=== PATIENT | female | born 1995 | race Caucasian/White ===

== ENCOUNTER 2017-08-10 18:58 | Emergency (ER) | payer MEDICAID, OTHER ==
[2017-08-10 19:26] VITALS: BP 127/76; PULSE 90; RESP 16; TEMP 98.8; O2SAT 100
--- NOTE | 2017-08-10 20:19 | ED PDOC ---
HPI: Female Pain Time Seen by Provider: 08/10/17 20:01 Chief Complaint (Nursing): Female Genitourinary Chief Complaint (Provider): vaginal pain History Per: Patient History/Exam Limitations: no limitations Onset/Duration Of Symptoms: Days (2) Current Symptoms Are (Timing): Still Present Quality Of Discomfort: "Pain" Additional History Per: Patient Additional Complaint(s): 22 y/o female presents for evaluation of left-sided vaginal pain/swelling x 2 days. Patient states swelling has worsened since yesterday. Denies fever, nausea/vomiting, abdominal/pelvic pain, vaginal bleeding/discharge, drainage from site. Past Medical History Reviewed: Historical Data, Nursing Documentation, Vital Signs Vital Signs: Last Vital Signs Temp 98.8 F 08/10/17 19:23 Pulse 90 08/10/17 19:23 Resp 16 08/10/17 19:23 BP 127/76 08/10/17 19:23 Pulse Ox 100 08/10/17 19:23 - Medical History PMH: No Chronic Diseases - Surgical History Surgical History: No Surg Hx - Family History Family History: States: No Known Family Hx - Home Medications Home Medications: Ambulatory Orders Medication Instructions Recorded Ciprofloxacin HCl [Cipro] 500 mg PO BID #13 tab 08/10/17 Ibuprofen [Motrin Tab] 1 tab PO Q6 PRN #20 tab 08/10/17 - Allergies Allergies/Adverse Reactions: Allergies Allergy/AdvReac Type Severity Reaction Status Date / Time No Known Allergies Allergy Verified 08/10/17 19:23 Review of Systems ROS Statement: Except As Marked, All Systems Reviewed And Found Negative Genitourinary Female: Positive for: Other (vaginal pain) Physical Exam - Reviewed Nursing Documentation Reviewed: Yes Vital Signs Reviewed: Yes - Physical Exam Appears: Positive for: Well, Non-toxic, No Acute Distress Cardiovascular/Chest: Positive for: Regular Rate, Rhythm Respiratory: Positive for: Normal Breath Sounds Gastrointestinal/Abdominal: Positive for: Normal Exam, Bowel Sounds, Soft Pelvic Exam: Negative for: External Exam Normal (left labia majora erythema/ swelling. 4:00 position left labia minora with erythema, swelling, tender to palpate; no active drainage) Extremity: Positive for: Normal ROM Neurologic/Psych: Positive for: Alert, Oriented - ECG O2 Sat by Pulse Oximetry: 100 - Progress ED Course And Treament: Patient evaluated by Dr. Leslie, Book Agent on-call; arrangements made for follow up at clinic. Recommends pain control, sitz baths, and trial Cipro. Return precautions given. Disposition - Clinical Impression Clinical Impression: Swelling of vulva - Patient ED Disposition Is Patient to be Admitted: No Counseled Patient/Family Regarding: Diagnosis, Need For Followup, Rx Given - Disposition [facility] Disposition: Routine/Home Disposition Time: 21:51 Condition: STABLE Prescriptions: Ciprofloxacin HCl [Cipro] 500 mg PO BID #13 tab Ibuprofen [Motrin Tab] 1 tab PO Q6 PRN #20 tab PRN Reason: Pain, Moderate (4-7) Instructions: Bartholin's Gland Cyst, Skin Abscess
--- NOTE | 2017-08-10 21:35 | CP.PCM.CON ---
<Juan Mckoy - Last Filed: 08/10/17 21:25> History of Present Illness - History of Present Illness History of Present Illness: SOFTWARE SYSTEMS ANALYST Consult Pt is a 22 y/o female presenting to ED with vaginal pain and swelling x 1 day. States she has been having vaginal pain when she sits and noticed a mass associated with foul odor. Denies vaginal bleeding, discharge, pruritus, fever, chills, dysuria. PMHX: denies PSurgHx: denies GYNHx: no hx of STD, sexually active with one partner, uses condoms OBHx: 1 prior Meds: denies NKDA Denies smoking, alcohol, drug use VSS, afebrile Exam: 2-3 cm vaginal swelling (left) in the 3:00 position, mild tenderness, no fluctuance or drainage, skin intact Assessment & Plan: Diagnosis: Vaginal Swelling vs Abscess. Questionable Bartholins cyst. No indication for incision, pt advised to f/u with SOFTWARE SYSTEMS ANALYST in outpatient setting for further evaluation and management. OTC nsaids and sitz baths recommended for pain control. ER precautions given. Pt verbalized understanding. Discussed with OB Attending TAI ForbesY1 Review of Systems - Constitutional Constitutional: absent: Chills, Fever - Cardiovascular Cardiovascular: absent: Chest Pain - Respiratory Respiratory: absent: Cough - Gastrointestinal Gastrointestinal: absent: Abdominal Pain - Genitourinary Genitourinary: absent: Dysuria, Hematuria, Urinary Frequency - Reproductive: Female Reproductive:Female: Vaginal Odor. absent: Genital Pruritis, Pelvic Pain, Vaginal Discharge, Vaginal Pruritis Past Patient History - Past Social History Smoking Status: Never Smoked - PSYCHIATRIC Hx Substance Use: No - SURGICAL HISTORY Hx Surgeries: No Meds Home Medications: Home Medication List Medication Instructions Recorded Confirmed Type Ciprofloxacin HCl [Cipro] 500 mg PO BID #13 tab 08/10/17 Rx Ibuprofen [Motrin Tab] 1 tab PO Q6 PRN #20 tab 08/10/17 Rx Allergies/Adverse Reactions: Allergies Allergy/AdvReac Type Severity Reaction Status Date / Time No Known Allergies Allergy Verified 08/10/17 19:23 Physical Exam - Constitutional Appears: Well, Non-toxic, No Acute Distress - ENT Exam ENT Exam: Mucous Membranes Moist - Respiratory Exam Respiratory Exam: Clear to Auscultation Bilateral. absent: Accessory Muscle Use - Cardiovascular Exam Cardiovascular Exam: REGULAR RHYTHM, +S1, +S2. absent: Systolic Murmur - GI/Abdominal Exam GI & Abdominal Exam: Normal Bowel Sounds, Soft. absent: Tenderness - Exam External exam: Swelling (Vaginal swelling, Left side, 2-3cm ). absent: Ecchymosis, Erythema, Lacerations - Psychiatric Exam Psychiatric exam: Normal Mood Results - Vital Signs Recent Vital Signs: Last Vital Signs Temp 98.8 F 08/10/17 19:23 Pulse 90 08/10/17 19:23 Resp 16 08/10/17 19:23 BP 127/76 08/10/17 19:23 Pulse Ox 100 08/10/17 20:27 <Augustine Leslie - Last Filed: 08/11/17 09:09> Results - Vital Signs Recent Vital Signs: Last Vital Signs Temp 98.8 F 08/10/17 19:23 Pulse 90 08/10/17 19:23 Resp 16 08/10/17 19:23 BP 127/76 08/10/17 19:23 Pulse Ox 100 08/10/17 21:58 Assessment & Plan - Assessment and Plan (Free Text) Assessment: Vaginal cyst - abscess unlikely Plan: Follow up SOFTWARE SYSTEMS ANALYST in 1-2w; local care. If increasing size, pain fever/chills come back to ER...Agree with note PGY1 NELA
== END 2017-08-10 22:20 | disposition home or self-care (01) ==
LOC: H.ER 18:58
DX: N90.9 Noninflammatory disorder of vulva and perineum, unspecified (principal)

== ENCOUNTER 2017-08-11 17:30 | Emergency (ER) | payer MEDICAID ==
[2017-08-11 18:03] VITALS: RESP 18; TEMP 99.4; O2SAT 99
--- NOTE | 2017-08-11 18:28 | ED PDOC ---
HPI: Female Pain Time Seen by Provider: 08/11/17 18:25 Chief Complaint (Nursing): Abnormal Skin Integrity Chief Complaint (Provider): Labial swelling History Per: Patient History/Exam Limitations: no limitations Onset/Duration Of Symptoms: Days (few days) Current Symptoms Are (Timing): Still Present Additional Complaint(s): Pt. with left labia swelling. No dc. No abd pain, dysuria, weakness. No back pain. Seen here yesterday for same and OBGYN saw pt. No drainage but given cipro and motrin. Pt. back as pain and swelling increased. Past Medical History Reviewed: Nursing Documentation, Vital Signs Vital Signs: Last Vital Signs Temp 99.4 F 08/11/17 18:01 Pulse 94 H 08/11/17 18:01 Resp 18 08/11/17 18:01 BP 114/70 08/11/17 18:01 Pulse Ox 99 08/11/17 18:01 - Medical History PMH: No Chronic Diseases - Surgical History Surgical History: No Surg Hx - Family History Family History: States: Unknown Family Hx - Immunization History Hx Tetanus Toxoid Vaccination: No Hx Influenza Vaccination: No Hx Pneumococcal Vaccination: No - Home Medications Home Medications: Ambulatory Orders Medication Instructions Recorded Ciprofloxacin HCl [Cipro] 500 mg PO BID #13 tab 08/10/17 Ibuprofen [Motrin Tab] 1 tab PO Q6 PRN #20 tab 08/10/17 - Allergies Allergies/Adverse Reactions: Allergies Allergy/AdvReac Type Severity Reaction Status Date / Time No Known Allergies Allergy Verified 08/10/17 19:23 Review of Systems ROS Statement: Except As Marked, All Systems Reviewed And Found Negative Constitutional: Negative for: Fever, Weakness Genitourinary Female: Positive for: Other (labial pain) Physical Exam - Reviewed Nursing Documentation Reviewed: Yes Vital Signs Reviewed: Yes - Physical Exam Appears: Positive for: Non-toxic, No Acute Distress Head Exam: Positive for: ATRAUMATIC, NORMAL INSPECTION, NORMOCEPHALIC Skin: Positive for: Normal Color, Warm, DRY Neck: Positive for: Normal, Painless ROM Cardiovascular/Chest: Positive for: Regular Rate, Rhythm Respiratory: Positive for: CNT, Normal Breath Sounds Gastrointestinal/Abdominal: Positive for: Normal Exam, Bowel Sounds, Soft. Negative for: Tenderness Pelvic Exam: Positive for: Other (L labia swelling; L internal labia swelling; tender; no dc) Back: Positive for: Normal Inspection. Negative for: L CVA Tenderness, R CVA Tenderness Extremity: Positive for: Normal ROM. Negative for: Tenderness, Pedal Edema Neurologic/Psych: Positive for: Alert, Oriented - ECG O2 Sat by Pulse Oximetry: 99 Pulse Ox Interpretation: Normal - Progress ED Course And Treament: 1907: Spoke with Dr. Elizabeth. Will see pt. in ER. 2051: Stable. Dr. Elizabeth did I and D. Fu with [facility]. Disposition - Clinical Impression Clinical Impression: Bartholin cyst - Patient ED Disposition Is Patient to be Admitted: No Counseled Patient/Family Regarding: Diagnosis, Need For Followup, Rx Given - Disposition [facility]errals[facility]] - 08/13/17 Disposition: Routine/Home Disposition Time: 20:53 Condition: STABLE Additional Instructions: Return if not better in 3 days. Continue your antibiotics. Instructions: Bartholin's Gland Cyst Forms: [employer] (Hong Konger), [facility] ED School/Work Excuse
[2017-08-11] MEDS ORDERED: Lidocaine 1% Inj (20ml) ONE (19:25)
[2017-08-11] MEDS ORDERED: Povidone Iodine Topical 10% Sol ONE (19:59)
--- NOTE | 2017-08-11 20:16 | CP.PCM.CON ---
History of Present Illness - History of Present Illness History of Present Illness: The patient presents to the emergency room complaining of labial discomfort difficulty sitting difficulty ambulating 24 hours duration. Patient states she was in the ER 1 day prior with similar complaints patient states symptoms got worse requesting medical attention Past Patient History - Past Social History Smoking Status: Never Smoked - PSYCHIATRIC Hx Substance Use: No - SURGICAL HISTORY Hx Surgeries: No Meds Allergies/Adverse Reactions: Allergies Allergy/AdvReac Type Severity Reaction Status Date / Time No Known Allergies Allergy Verified 08/10/17 19:23 Physical Exam - Exam Additional comments: Left Bartholin's abscess approximately 3to 4 cm in size fluctuant and tender to palpation Results - Vital Signs Recent Vital Signs: Last Vital Signs Temp 99.4 F 08/11/17 18:01 Pulse 94 H 08/11/17 18:01 Resp 18 08/11/17 18:01 BP 114/70 08/11/17 18:01 Pulse Ox 99 08/11/17 19:08 Assessment & Plan - Assessment and Plan (Free Text) Assessment: Left Bartholin's abscess informed consent obtained 4 incision and drainage. Procedure note the area was prepped with Betadine, lidocaine was infused, an 11 blade was used to make an incision the contents of the Bartholin's cyst were expressed and a Donovan catheter was inserted. The patient was instructed to follow up with her PMD in 1 week
[2017-08-11 21:23] VITALS: BP 109/59; PULSE 90
== END 2017-08-11 21:23 | disposition home or self-care (01) ==
LOC: H.ER 17:30
DX: N75.1 Abscess of Bartholin's gland (principal)

== ENCOUNTER 2018-03-02 18:59 | Emergency (ER) | payer SELFPAY ==
[2018-03-02 19:26] VITALS: BP 124/77; PULSE 87; RESP 16; TEMP 98.4; O2SAT 100
--- NOTE | 2018-03-02 20:22 | ED PDOC ---
HPI: Skin/Bite Injury Time Seen by Provider: 03/02/18 19:29 Chief Complaint (Nursing): Abnormal Skin Integrity Chief Complaint (Provider): rash History Per: Patient History/Exam Limitations: no limitations Onset/Duration Of Symptoms: Days (x1) Current Symptoms Are (Timing): Still Present Additional Complaint(s): Soni Rosenthal is a 22 year old female, with no significant past medical history , who presents to the emergency department after she noticed a couple of red spots on her neck, flank and upper back onset yesterday. Patient describes them as nonpainful and occasionally itchy. Otherwise, she denies any other medical complaints. PMD: None provided. Past Medical History Reviewed: Historical Data, Nursing Documentation, Vital Signs Vital Signs: Last Vital Signs Temp 98.4 F 03/02/18 19:23 Pulse 87 03/02/18 19:23 Resp 16 03/02/18 19:23 BP 124/77 03/02/18 19:23 Pulse Ox 100 03/02/18 20:41 - Medical History PMH: No Chronic Diseases - Surgical History Surgical History: No Surg Hx - Family History Family History: States: Unknown Family Hx - Immunization History Hx Tetanus Toxoid Vaccination: No Hx Influenza Vaccination: No Hx Pneumococcal Vaccination: No - Home Medications Home Medications: Ambulatory Orders Medication Instructions Recorded Ciprofloxacin HCl [Cipro] 500 mg PO BID #13 tab 08/10/17 Ibuprofen [Motrin Tab] 1 tab PO Q6 PRN #20 tab 08/10/17 - Allergies Allergies/Adverse Reactions: Allergies Allergy/AdvReac Type Severity Reaction Status Date / Time No Known Allergies Allergy Verified 08/10/17 19:23 Review of Systems ROS Statement: Except As Marked, All Systems Reviewed And Found Negative Skin: Positive for: Rash (neck, flank and upper back) Physical Exam - Reviewed Nursing Documentation Reviewed: Yes Vital Signs Reviewed: Yes - Physical Exam Appears: Positive for: Well, Non-toxic, No Acute Distress Head Exam: Positive for: ATRAUMATIC, NORMOCEPHALIC Skin: Positive for: Normal Color, Warm, Dry, Rash (scattered oval flesh colored macular rash to the upper back, neck and left flank area with one larger area to the left flank) Eye Exam: Positive for: Normal appearance ENT: Positive for: Normal ENT Inspection Neck: Positive for: Painless ROM Cardiovascular/Chest: Positive for: Regular Rate, Rhythm. Negative for: Murmur Respiratory: Positive for: Normal Breath Sounds. Negative for: Respiratory Distress Extremity: Positive for: Normal ROM (upper and lower extremities). Negative for : Deformity Neurologic/Psych: Positive for: Alert, Oriented - ECG O2 Sat by Pulse Oximetry: 100 (RA) Pulse Ox Interpretation: Normal Medical Decision Making Medical Decision Making: Time: 19:29 Initial Impression: pityriasis rosea Initial Plan: -Patient is nontoxic, well appearing with one larger patch being seen to the left flank. -Patient is declining benadryl 20:15 Upon provider evaluation patient is medically stable, and requires no further treatment in the ED at this time. Patient will be discharged home. Counseling was provided and all questions were answered regarding diagnosis. There is agreement to discharge plan. Return if symptoms persist or worsen. Scribe Attestation: Documented by Tae Walters, acting as a scribe for Yara Nowak PA-C Provider Scribe Attestation: All medical record entries made by the Scribe were at my direction and personally dictated by me. I have reviewed the chart and agree that the record accurately reflects my personal performance of the history, physical exam, medical decision making, and the department course for this patient. I have also personally directed, reviewed, and agree with the discharge instructions and disposition. Disposition - Clinical Impression Clinical Impression: Pityriasis in adult - Patient ED Disposition Is Patient to be Admitted: No Doctor Will See Patient In The: Office - Disposition Disposition: Routine/Home Disposition Time: 21:21 Condition: STABLE Instructions: Pityriasis Rosea Forms: [employer] (Danish)
== END 2018-03-02 22:52 | disposition home or self-care (01) ==
LOC: H.ER 18:59
DX: L30.5 Pityriasis alba (principal)

== ENCOUNTER 2018-05-20 12:55 | Emergency (ER) | payer MEDICAID, OTHER ==
--- NOTE | 2018-05-20 13:38 | ED PDOC ---
HPI: Abdomen Time Seen by Provider: 05/20/18 13:27 Chief Complaint (Nursing): Abdominal Pain Chief Complaint (Provider): Abdominal Pain History Per: Patient History/Exam Limitations: no limitations Onset/Duration Of Symptoms: Days Location Of Pain/Discomfort: LLQ Quality Of Discomfort: "Pain" Additional Complaint(s): 22 year old female presents to the ED for an evaluation of left lower quadrant abdominal pain. Patient states she has had the pain for 3 days. Her last menstrual period was last month which she states is irregular. Denies nausea, vomiting, diarrhea, incontinence, dysuria, frequency or any other urinary symptoms. Past Medical History Reviewed: Historical Data, Nursing Documentation, Vital Signs Vital Signs: Last Vital Signs Temp 98 F 05/20/18 13:19 Pulse 80 05/20/18 13:19 Resp 18 05/20/18 13:19 BP 145/72 05/20/18 13:19 Pulse Ox 99 05/20/18 13:19 - Medical History PMH: No Chronic Diseases - Family History Family History: States: Unknown Family Hx - Immunization History Hx Tetanus Toxoid Vaccination: No Hx Influenza Vaccination: No Hx Pneumococcal Vaccination: No - Home Medications Home Medications: Ambulatory Orders Medication Instructions Recorded Ciprofloxacin HCl [Cipro] 500 mg PO BID #13 tab 08/10/17 Ibuprofen [Motrin Tab] 1 tab PO Q6 PRN #20 tab 08/10/17 Naproxen [Naprosyn] 500 mg PO Q12H #20 tab 05/20/18 Sulfamethoxazole/Trimethoprim 1 tab PO BID #20 tab 05/20/18 [Bactrim DS 800 mg-160 mg] - Allergies Allergies/Adverse Reactions: Allergies Allergy/AdvReac Type Severity Reaction Status Date / Time No Known Allergies Allergy Verified 05/20/18 13:19 Review of Systems ROS Statement: Except As Marked, All Systems Reviewed And Found Negative Constitutional: Negative for: Fever Gastrointestinal: Positive for: Abdominal Pain. Negative for: Nausea, Vomiting, Diarrhea Genitourinary Female: Negative for: Dysuria, Frequency, Incontinence, Hematuria, Vaginal Discharge, Vaginal Bleeding Physical Exam - Reviewed Nursing Documentation Reviewed: Yes Vital Signs Reviewed: Yes - Physical Exam Appears: Positive for: Well, Non-toxic, No Acute Distress Head Exam: Positive for: ATRAUMATIC, NORMAL INSPECTION, NORMOCEPHALIC Skin: Positive for: Normal Color, Warm, Dry. Negative for: Rash Eye Exam: Positive for: EOMI, Normal appearance, PERRL Neck: Positive for: Normal, Painless ROM Cardiovascular/Chest: Positive for: Regular Rate, Rhythm. Negative for: Murmur Respiratory: Positive for: Normal Breath Sounds. Negative for: Decreased Breath Sounds, Wheezing, Respiratory Distress Gastrointestinal/Abdominal: Positive for: Tenderness (mild tenderness to LLQ). Negative for: Mass Neurologic/Psych: Positive for: Alert, Oriented (x3). Negative for: Motor/Sensory Deficits - Laboratory Results Result Diagrams: 05/20/18 13:17 05/20/18 13:17 - ECG O2 Sat by Pulse Oximetry: 99 (RA) Pulse Ox Interpretation: Normal Medical Decision Making Medical Decision Making: Time: 1332 Initial Plan: CMP ED urine ED urine dipstick CBC w/ Differential Transvaginal US Reevaluation Scribe Attestation: Documented by Mary Jo Tucker, acting as a scribe for Bill Soriano MD. Provider Scribe Attestation: All medical record entries made by the Scribe were at my direction and personally dictated by me. I have reviewed the chart and agree that the record accurately reflects my personal performance of the history, physical exam, medical decision making, and the department course for this patient. I have also personally directed, reviewed, and agree with the discharge instructions and disposition. Disposition - Clinical Impression Clinical Impression: UTI (urinary tract infection) - Patient ED Disposition Is Patient to be Admitted: No Counseled Patient/Family Regarding: Studies Performed, Diagnosis, Need For Followup, Rx Given - Disposition Referrals: [facility] [Outside] Disposition: Routine/Home Disposition Time: 15:19 Condition: FAIR Prescriptions: Naproxen [Naprosyn] 500 mg PO Q12H #20 tab Sulfamethoxazole/Trimethoprim [Bactrim DS 800 mg-160 mg] 1 tab PO BID #20 tab Instructions: Urinary Tract Infections in Adults Forms: [employer] (Sammarinese)
[2018-05-20 14:03] LABS: BASO # 0.1 K/uL (0.0-0.2); BASO % 1.4 % (0.0-2.0); EOS # 0.1 K/uL (0.0-0.7); HEMOGLOBIN 13.9 g/dL (12.0-16.0); LYMPH # 1.6 K/uL (1.0-4.3); MEAN CORPUSCULAR HEMOGLOBIN 29.4 pg (27.0-31.0); MEAN CORPUSCULAR HGB CONC 33.8 g/dL (33.0-37.0); MEAN PLATELET VOLUME 9.9 fl (7.2-11.7); MONO # 0.4 K/uL (0.0-0.8); MONO % 5.7 % (0.0-10.0); NEUT % 69.9 % (50.0-75.0); NRBC % 0.1 % (0.0-0.0); RBC 4.72 Mil/uL (3.80-5.20); RED CELL DISTRIBUTION WIDTH 13.9 % (11.5-14.5); WHITE BLOOD COUNT 7.2 K/uL (4.8-10.8)
[2018-05-20 14:13] LABS: ALB/GLOB RATIO 1.3 (1.0-2.1); ALBUMIN 4.3 g/dL (3.5-5.0); ALT/SGPT 33 U/L (9-52); AST/SGOT 27 U/L (14-36); BLOOD UREA NITROGEN 8 mg/dl (7-17); CALCIUM 9.3 mg/dL (8.4-10.2); GFR NON-AFRICAN AMERICAN > 60
[2018-05-20 15:36] VITALS: BP 122/67; PULSE 75; RESP 16; TEMP 98.2; O2SAT 98
--- NOTE | 2018-05-20 16:20 | US ---
Date of service: 05/20/2018 HISTORY: LLQ pain LMP 04/30/2018. Irregular cycles. COMPARISON: None available. TECHNIQUE: Transvaginal only. Real -time technique with 2D, duplex and color Doppler FINDINGS: UTERUS: Measures 5.2 x 9.6 x 7.5 cm. Normal in size and appearance. No fibroid or other mass lesion seen. ENDOMETRIUM: Measures 13.2 mm in diameter. Unremarkable. CERVIX: No cervical abnormality identified. RIGHT OVARY: Measures 2.1 x 2.9 x 3.9 cm. No solid mass. Normal flow. Multiple subcentimeter follicles. LEFT OVARY: Measures 2.1 x 2.9 x 3.6 cm. No solid mass. Normal flow. Multiple subcentimeter follicles. FREE FLUID: No significant free fluid noted. OTHER FINDINGS: None. IMPRESSION: Mild endometrial hypertrophy without focal or diffuse abnormality.
== END 2018-05-20 15:39 | disposition home or self-care (01) ==
LOC: H.ER 12:55
DX: N39.0 Urinary tract infection, site not specified (principal)

== ENCOUNTER 2018-08-09 14:10 | Emergency (ER) | payer MEDICAID ==
[2018-08-09] MEDS ORDERED: Sodium Chloride 0.9% 1,000 ML IV STA (14:28)
--- NOTE | 2018-08-09 14:31 | ED PDOC ---
HPI: Female Pain Time Seen by Provider: 08/09/18 14:23 Chief Complaint (Nursing): Abdominal Pain Chief Complaint (Provider): Irregular period History Per: Patient History/Exam Limitations: no limitations Onset/Duration Of Symptoms: Days (this month) Additional Complaint(s): Pt. with irregular period hx. Was regular for 3 months and this month she did not have a period. Mild pelvic cramps across lower. No back pain, chest pain, dyspnea, fever, dysuria. No injury. Past Medical History Reviewed: Nursing Documentation, Vital Signs Vital Signs: Last Vital Signs Temp 98.3 F 08/09/18 14:13 Pulse 78 08/09/18 14:13 Resp 16 08/09/18 14:13 BP 119/64 08/09/18 14:13 Pulse Ox 100 08/09/18 14:13 - Medical History Other PMH: irregular period - Surgical History Surgical History: No Surg Hx - Family History Family History: States: Unknown Family Hx - Immunization History Hx Tetanus Toxoid Vaccination: No Hx Influenza Vaccination: No Hx Pneumococcal Vaccination: No - Home Medications Home Medications: Ambulatory Orders Medication Instructions Recorded Ciprofloxacin HCl [Cipro] 500 mg PO BID #13 tab 08/10/17 Ibuprofen [Motrin Tab] 1 tab PO Q6 PRN #20 tab 08/10/17 Naproxen [Naprosyn] 500 mg PO Q12H #20 tab 05/20/18 Sulfamethoxazole/Trimethoprim 1 tab PO BID #20 tab 05/20/18 [Bactrim DS 800 mg-160 mg] - Allergies Allergies/Adverse Reactions: Allergies Allergy/AdvReac Type Severity Reaction Status Date / Time No Known Allergies Allergy Verified 08/09/18 14:13 Review of Systems ROS Statement: Except As Marked, All Systems Reviewed And Found Negative Genitourinary Female: Positive for: Pelvic Pain Physical Exam - Reviewed Nursing Documentation Reviewed: Yes Vital Signs Reviewed: Yes - Physical Exam Appears: Positive for: Non-toxic, No Acute Distress Head Exam: Positive for: ATRAUMATIC, NORMAL INSPECTION, NORMOCEPHALIC Skin: Positive for: Normal Color, Warm, DRY Eye Exam: Positive for: EOMI, Normal appearance, PERRL ENT: Positive for: Normal ENT Inspection Neck: Positive for: Normal, Painless ROM Cardiovascular/Chest: Positive for: Regular Rate, Rhythm Respiratory: Positive for: CNT, Normal Breath Sounds Gastrointestinal/Abdominal: Positive for: Soft, Tenderness (mild across lower) Back: Positive for: Normal Inspection. Negative for: L CVA Tenderness, R CVA Tenderness Extremity: Positive for: Normal ROM Neurologic/Psych: Positive for: Alert, Oriented - Laboratory Results Result Diagrams: 08/09/18 14:36 08/09/18 14:36 Lab Results: no acute - ECG O2 Sat by Pulse Oximetry: 100 Pulse Ox Interpretation: Normal - CT Scan/US us Other Rad Studies (CT/US): Read By Radiologist Other Rad Interpretation: ovarian cyst - Progress ED Course And Treament: 1636: Stable. AAOx3. Pain free. Tolerated PO. Fu with frame carver spindle for further eval. Disposition - Clinical Impression Clinical Impression: Irregular periods, Pelvic pain - Patient ED Disposition Is Patient to be Admitted: No Counseled Patient/Family Regarding: Studies Performed, Diagnosis, Need For Followup - Disposition [facility] - 08/11/18 [facility] [Outside] - 08/10/18 Disposition: Routine/Home Disposition Time: 16:29 Condition: STABLE Additional Instructions: Return if not better in 3 days. Instructions: Acute Pelvic Pain, Absent or Irregular Periods Forms: [employer] (Tunisian), [facility] ED School/Work Excuse
[2018-08-09 16:01] LABS: BASO # 0.1 K/uL (0.0-0.2); BASO % 0.8 % (0.0-2.0); EOS # 0.1 K/uL (0.0-0.7); EOS % 0.6 % (0.0-4.0); HEMOGLOBIN 14.1 g/dL (12.0-16.0); LYMPH # 1.6 K/uL (1.0-4.3); LYMPH % 16.8 % (20.0-40.0); MEAN CELL VOLUME 88.3 fl (81.0-99.0); MEAN CORPUSCULAR HEMOGLOBIN 29.5 pg (27.0-31.0); MEAN CORPUSCULAR HGB CONC 33.4 g/dL (33.0-37.0); MEAN PLATELET VOLUME 10.1 fl (7.2-11.7); MONO # 0.5 K/uL (0.0-0.8); MONO % 4.9 % (0.0-10.0); NEUT # 7.5 K/uL (1.8-7.0); NEUT % 76.9 % (50.0-75.0); RBC 4.79 Mil/uL (3.80-5.20); RED CELL DISTRIBUTION WIDTH 14.3 % (11.5-14.5); WHITE BLOOD COUNT 9.8 K/uL (4.8-10.8)
[2018-08-09 16:10] LABS: ALB/GLOB RATIO 1.4 (1.0-2.1); ALBUMIN 4.8 g/dL (3.5-5.0); ALT/SGPT 30 U/L (9-52); AST/SGOT 26 U/L (14-36); BLOOD UREA NITROGEN 11 mg/dl (7-17); GFR NON-AFRICAN AMERICAN > 60
--- NOTE | 2018-08-09 16:25 | US ---
Date of service: 08/09/2018 HISTORY: vaginal bleeding COMPARISON: None available. TECHNIQUE: Transvaginal pelvic ultrasound was performed with longitudinal and transverse images submitted for interpretation. FINDINGS: UTERUS: Measures 9.4 x 5.1 x 6.2 cm. Normal in size and appearance, anteverted. No fibroid or other mass lesion seen. ENDOMETRIUM: Measures 12.0 mm in diameter. No distinct mass or fluid collection related to the endometrial cavity as imaged. CERVIX: No cervical abnormality identified. RIGHT OVARY: Measures 2.7 x 1.5 x 2.0 cm. No solid mass. Normal flow. Small complex cyst is seen within the right ovary measuring 1.2 x 0.9 x 0.9 cm. LEFT OVARY: Measures 2.5 x 1.7 x 1.9 cm. No solid mass. Normal flow. FREE FLUID: No significant free fluid noted. OTHER FINDINGS: None. IMPRESSION: 1. Small complex cyst right ovary 1.2 cm. Left ovary unremarkable. 2. No evidence of ovarian torsion bilaterally. No suspicious fluid collection bilateral necks compartments. 3. Prominent endometrium though this is not discordant with LMP of 08/09/2018. No suspicious focal mass or fluid collection related to the endometrium as imaged. Myometrium unremarkable.
[2018-08-09 16:55] VITALS: BP 128/75; PULSE 70; RESP 17; TEMP 98.9; O2SAT 99
== END 2018-08-09 17:00 | disposition home or self-care (01) ==
LOC: H.ER 14:10
DX: N92.6 Irregular menstruation, unspecified (principal); R10.2 Pelvic and perineal pain
CPT/HCPCS: 76830; 80053; 81025; 84702; 85025; 96360; 99284; J7030

== ENCOUNTER 2018-09-09 14:42 | Emergency (ER) | payer MEDICAID ==
[2018-09-09 15:10] VITALS: BP 120/78; PULSE 91; RESP 18; TEMP 99.1; O2SAT 100
[2018-09-09 16:17] LABS: SQUAMOUS EPITHIAL 8 /hpf (0-5); URINE BILIRUBIN NEGATIVE (NEGATIVE); URINE BLOOD NEGATIVE (NEGATIVE); URINE CLARITY SLIGHTY-CLOUDY (Clear); URINE COLOR YELLOW (YELLOW); URINE GLUCOSE (UA) NEG (NEGATIVE); URINE LEUKOCYTE ESTERASE SMALL Leu/uL (Negative); URINE PROTEIN 30 mg/dL (NEGATIVE)
[2018-09-09 16:27] LABS: URINE UROBILINOGEN 0.2 mg/dL (0.2-1.0)
--- NOTE | 2018-09-09 17:08 | ED PDOC ---
HPI: Female Pain Time Seen by Provider: 09/09/18 15:37 Chief Complaint (Nursing): Female Genitourinary Chief Complaint (Provider): Female Genitourinary History Per: Patient History/Exam Limitations: no limitations Onset/Duration Of Symptoms: Mins Current Symptoms Are (Timing): Still Present Additional Complaint(s): 23 y/o female with a PMHx of A0 presents to the ED requesting blood work to confirm . Patient reports of taking an at home test that resulted positive just prior to arrival. Patient notes her LNMP was on 07/19/2018. Patient additionally reports of developing mild intermittent suprapubic cramping over the last few days, but non right now. Otherwise, patient denies nausea, vomiting, vaginal bleeding and urinary symptoms. 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 provider : 1 Para: 1 Past Medical History Reviewed: Historical Data, Nursing Documentation, Vital Signs Vital Signs: Last Vital Signs Temp 99.1 F 09/09/18 15:09 Pulse 91 H 09/09/18 15:09 Resp 18 09/09/18 15:09 BP 120/78 09/09/18 15:09 Pulse Ox 100 09/09/18 15:09 - Medical History PMH: No Chronic Diseases - Surgical History Surgical History: No Surg Hx - Family History Family History: States: Unknown Family Hx - Immunization History Hx Tetanus Toxoid Vaccination: No Hx Influenza Vaccination: No Hx Pneumococcal Vaccination: No - Home Medications Home Medications: Ambulatory Orders Medication Instructions Recorded Ciprofloxacin HCl [Cipro] 500 mg PO BID #13 tab 08/10/17 Ibuprofen [Motrin Tab] 1 tab PO Q6 PRN #20 tab 08/10/17 Naproxen [Naprosyn] 500 mg PO Q12H #20 tab 05/20/18 Sulfamethoxazole/Trimethoprim 1 tab PO BID #20 tab 05/20/18 [Bactrim DS 800 mg-160 mg] Multivit/Folic Acid/I 1 tab PO DAILY #30 tab 09/09/18 [ Plus] - Allergies Allergies/Adverse Reactions: Allergies Allergy/AdvReac Type Severity Reaction Status Date / Time No Known Allergies Allergy Verified 08/09/18 14:13 Review of Systems ROS Statement: Except As Marked, All Systems Reviewed And Found Negative Constitutional: Positive for: Other (requesting blood work to confirm ) Gastrointestinal: Positive for: Abdominal Pain (suprapubic intermittent, mild). Negative for: Nausea, Vomiting Genitourinary Female: Negative for: Dysuria, Frequency, Hematuria Physical Exam - Reviewed Nursing Documentation Reviewed: Yes Vital Signs Reviewed: Yes - Physical Exam Comments: GENERAL APPEARANCE: Patient is awake, alert, oriented x 3, in mild painful distress. SKIN: Warm, dry; (-) cyanosis. EYES: (-) conjunctival pallor, (-) scleral icterus. ENMT: Mucous membranes moist. NECK: (-) tenderness, (-) stiffness, (-) lymphadenopathy. CHEST AND RESPIRATORY: (-) rales, (-) rhonchi, (-) wheezes; breath sounds equal bilaterally. HEART AND CARDIOVASCULAR: (-) irregularity; (-) murmur, (-) gallop. ABDOMEN AND GI: (-) distention. Bowel sounds active; (-) reproducible tenderness. (-) guarding, (-) rebound, (-) palpable masses, (-) CVA tenderness. EXTREMITIES: (-) deformity, (-) edema, (+) distal pulses. NEURO AND PSYCH: Mental status as above; (-) focal findings. - Laboratory Results Lab Results: Urine Color Yellow (YELLOW) 09/09/18 15:41 Urine Clarity Slighty-cloudy (Clear) 09/09/18 15:41 Urine pH 5.0 (5.0-8.0) 09/09/18 15:41 Ur Specific [place] 1.032 (1.003-1.030) H 09/09/18 15:41 Urine Protein 30 mg/dL (NEGATIVE) 09/09/18 15:41 Urine Glucose (UA) Neg mg/dL (NEGATIVE) 09/09/18 15:41 Urine Ketones Trace mg/dL (NEGATIVE) 09/09/18 15:41 Urine Blood Negative (NEGATIVE) 09/09/18 15:41 Urine Nitrate Negative (NEGATIVE) 09/09/18 15:41 Urine Bilirubin Negative (NEGATIVE) 09/09/18 15:41 Urine Urobilinogen 0.2 mg/dL (0.2-1.0) 09/09/18 15:41 Ur Leukocyte Esterase Small [place]/uL (Negative) 09/09/18 15:41 Urine RBC (Auto) 2 /hpf (0-3) 09/09/18 15:41 Urine Microscopic WBC 4 /hpf (0-5) 09/09/18 15:41 Ur Squamous Epith Cells 8 /hpf (0-5) H 09/09/18 15:41 - ECG O2 Sat by Pulse Oximetry: 100 (RA) Pulse Ox Interpretation: Normal Medical Decision Making Medical Decision Making: Time: 1536 Impression: Plan: -- Urine -- Urine Dipstick -- Discussed urine and urinalysis results with patient that demonstrate a positive test and no signs of infection. No further ER workup needed. Patient instructed to follow up with a PMD and [employer]IC[employer]AN for further management of Discussed results, diagnosis, treatment, return precautions and f/u with pt who is understanding, in agreement and stable for dc Scribe Attestation: Documented by Susana Edmonds, acting as a scribe Bob Giles PA-C. Provider Scribe Attestation: All medical record entries made by the Scribe were at my direction and personally dictated by me. I have reviewed the chart and agree that the record accurately reflects my personal performance of the history, physical exam, medical decision making, and the department course for this patient. I have also personally directed, reviewed, and agree with the discharge instructions and disposition. Disposition - Clinical Impression Clinical Impression: Encounter for test, result positive - Patient ED Disposition Is Patient to be Admitted: No Counseled Patient/Family Regarding: Studies Performed, Diagnosis, Need For Followup, Rx Given - Disposition Referrals: Augustine Leslie DO [Staff Provider] - Disposition: Routine/Home Disposition Time: 15:37 Condition: STABLE Additional Instructions: Return to ED for new or worsening symptoms, fever >100.4, severe abdominal pain, vaginal bleeding, urinary symptoms. Follow up with an OBGYN as soon as possible. Take vitamins. If any pain, take Tylenol only. Prescriptions: Multivit/Folic Acid/I [ Plus] 1 tab PO DAILY #30 tab Instructions: Tests, Symptoms Forms: [employer] (Bangladeshi) Print Language: TAIWANESE - POA Present On Arrival: None
== END 2018-09-09 16:40 | disposition home or self-care (01) ==
LOC: H.ER 14:42
DX: Z32.01 Encounter for pregnancy test, result positive (principal)

== ENCOUNTER 2018-10-13 21:15 | Emergency (ER) | payer MEDICAID ==
[2018-10-13 22:40] VITALS: RESP 18; O2SAT 100
[2018-10-14] MEDS ORDERED: Dextrose 5%/0.45% NS 1,000 ML IV SCH (01:00)
--- NOTE | 2018-10-14 01:26 | ED PDOC ---
HPI:Nausea, Vomiting, Diarrhea Time Seen by Provider: 10/14/18 00:35 Chief Complaint (Nursing): GI Problem Chief Complaint (Provider): GI Problem History Per: Patient History/Exam Limitations: no limitations Onset/Duration Of Symptoms: Days (x 2 weeks) Current Symptoms Are (Timing): Still Present Quality Of Discomfort: "Pain" Associated Symptoms: Nausea, Vomiting Alleviating Factors: None Additional Complaint(s): 23 year old female (ega 8 weeks) presents to the ED for evaluation of worsening nausea and vomiting for two weeks, now associated with lower abdominal pain. Patient is unable to tolerate PO fluids. She has not seen her OB yet. Denies fever, diarrhea, cough, shortness of breath and chest pain. PMD: none provided Abnormal Vaginal Bleeding: No : 2 Para: 1 Past Medical History Reviewed: Historical Data, Nursing Documentation, Vital Signs Vital Signs: Last Vital Signs Temp 98.9 F 10/13/18 22:38 Pulse 92 H 10/13/18 22:38 Resp 18 10/13/18 22:38 BP 147/74 10/13/18 22:38 Pulse Ox 100 10/13/18 22:38 Primary Care Provider: DoctorRitu - Medical History PMH: No Chronic Diseases - Surgical History Surgical History: No Surg Hx - Family History Family History: States: Unknown Family Hx - Immunization History Hx Tetanus Toxoid Vaccination: No Hx Influenza Vaccination: No Hx Pneumococcal Vaccination: No - Home Medications Home Medications: Ambulatory Orders Medication Instructions Recorded Ciprofloxacin HCl [Cipro] 500 mg PO BID #13 tab 08/10/17 Ibuprofen [Motrin Tab] 1 tab PO Q6 PRN #20 tab 08/10/17 Naproxen [Naprosyn] 500 mg PO Q12H #20 tab 05/20/18 Sulfamethoxazole/Trimethoprim 1 tab PO BID #20 tab 05/20/18 [Bactrim DS 800 mg-160 mg] Multivit/Folic Acid/I 1 tab PO DAILY #30 tab 09/09/18 [ Plus] Doxylamine/Pyridoxine HCl (B6) 1 - 2 each PO HS #16 tablet. 10/14/18 [Thi Cheney 10-10 mg Tablet] - Allergies Allergies/Adverse Reactions: Allergies Allergy/AdvReac Type Severity Reaction Status Date / Time No Known Allergies Allergy Verified 10/13/18 22:38 Review of Systems ROS Statement: Except As Marked, All Systems Reviewed And Found Negative Constitutional: Negative for: Fever Cardiovascular: Negative for: Chest Pain Respiratory: Negative for: Cough, Shortness of Breath Gastrointestinal: Positive for: Nausea, Vomiting, Abdominal Pain. Negative for: Diarrhea Physical Exam - Reviewed Nursing Documentation Reviewed: Yes Vital Signs Reviewed: Yes - Physical Exam Appears: Positive for: No Acute Distress Head Exam: Positive for: ATRAUMATIC, NORMAL INSPECTION, NORMOCEPHALIC Skin: Positive for: Normal Color, Warm, Dry Eye Exam: Positive for: EOMI, Normal appearance, PERRL ENT: Positive for: Other (tacky mucous membranes) Neck: Positive for: Normal, Painless ROM, Supple Cardiovascular/Chest: Positive for: Regular Rate, Rhythm. Negative for: Murmur Respiratory: Positive for: Normal Breath Sounds Gastrointestinal/Abdominal: Positive for: Tenderness (suprapubic and epigastric tenderness). Negative for: Mass, Guarding, Rebound Back: Positive for: Normal Inspection. Negative for: L CVA Tenderness, R CVA Tenderness Extremity: Positive for: Normal ROM (x 4). Negative for: Deformity Neurological/Psych: Positive for: Awake, Alert, Normal Tone, Oriented (x 3). Negative for: Motor/Sensory Deficits - Laboratory Results Result Diagrams: 10/14/18 01:07 10/14/18 01:07 - ECG O2 Sat by Pulse Oximetry: 100 (RA) Pulse Ox Interpretation: Normal Medical Decision Making Medical Decision Makin:53 Impression: 23 year old female with hyperemesis gravidarum Initial Plan: --Beta-HCG --CMP --CBC --Urine preg --Urine dip --Dextrose 5% 1,000 mls IV --Reglan 10 mg IVPB --UA --Gallbladder US --Ob Transvag US 04:04 Gallbladder US Findings: The liver is unremarkable measuring 17.3 cm. Unremarkable gallbladder. Gallbladder wall thickness measuring 2 mm. Nondilated common bile duct measuring 4 mm. Unremarkable IVC. Unremarkable aorta. Unremarkable right kidney measuring 10.4x4.3 x 3.7 cm. Impression: Unremarkable exam. 04:06 OB Transvaginal US Findings: Single, live intrauterine gestation. [place] rump length measures 2.1 cm. Estimated gestational age 8 weeks and 2 days. heart rate 171 beats per minute. Unremarkable ovaries. Closed cervix. Impression: Single, live intrauterine gestation. No abnormality seen. 04:18 Patient reports improvement of symptoms. Labs reviewed and reveal no clinically significant findings. Diagnosis is hyperemesis gravidarum. Scribe Attestation: Documented by Ariella Paul, acting as a scribe Juliette Cordova MD Provider Scribe Attestation: All medical record entries made by the Scribe were at my direction and personally dictated by me. I have reviewed the chart and agree that the record accurately reflects my personal performance of the history, physical exam, medical decision making, and the department course for this patient. I have also personally directed, reviewed, and agree with the discharge instructions and disposition Disposition - Clinical Impression Clinical Impression: Hyperemesis gravidarum - Patient ED Disposition Is Patient to be Admitted: No - Disposition Disposition: Routine/Home Disposition Time: 04:19 Condition: STABLE Prescriptions: Doxylamine/Pyridoxine HCl (B6) [Thi Cheney 10-10 mg Tablet] 1 - 2 each PO HS #16 tablet. Instructions: Hyperemesis Gravidarum Forms: [employer] (Romansh)
[2018-10-14 01:47] LABS: BASO % 0.3 % (0.0-2.0); EOS # 0.1 K/uL (0.0-0.7); EOS % 0.5 % (0.0-4.0); HEMOGLOBIN 14.2 g/dL (12.0-16.0); LYMPH # 1.8 K/uL (1.0-4.3); LYMPH % 15.1 % (20.0-40.0); MEAN CELL VOLUME 88.1 fl (81.0-99.0); MEAN CORPUSCULAR HEMOGLOBIN 29.9 pg (27.0-31.0); MEAN CORPUSCULAR HGB CONC 33.9 g/dL (33.0-37.0); MEAN PLATELET VOLUME 9.5 fl (7.2-11.7); MONO # 0.7 K/uL (0.0-0.8); MONO % 6.1 % (0.0-10.0); NEUT # 9.5 K/uL (1.8-7.0); NRBC % 0.1 % (0.0-0.0); RBC 4.75 Mil/uL (3.80-5.20); RED CELL DISTRIBUTION WIDTH 14.7 % (11.5-14.5); WHITE BLOOD COUNT 12.2 K/uL (4.8-10.8)
[2018-10-14 01:53] LABS: ALB/GLOB RATIO 1.4 (1.0-2.1); ALBUMIN 4.4 g/dL (3.5-5.0); ALT/SGPT 31 U/L (9-52); AST/SGOT 23 U/L (14-36); BLOOD UREA NITROGEN 8 mg/dl (7-17); CALCIUM 9.7 mg/dL (8.4-10.2); GFR NON-AFRICAN AMERICAN > 60
[2018-10-14 06:09] VITALS: BP 131/70; PULSE 84; TEMP 98.6
--- NOTE | 2018-10-14 11:31 | US ---
Date of service: 10/14/2018 HISTORY: Abdominal pain, vomiting. COMPARISON: None. TECHNIQUE: Sonographic evaluation of the right upper quadrant of the abdomen. FINDINGS: LIVER: Measures 17.3 cm in length. Patent portal and hepatic venous systems. Portal venous flow: Hepatopetal. echogenicity of the liver parenchyma. No mass. No intrahepatic bile duct dilatation. GALLBLADDER: Unremarkable. No gallstones. COMMON BILE DUCT: Measures 3.6 mm. No stones. No dilatation. PANCREAS: Unremarkable as visualized. No mass. No ductal dilatation. RIGHT KIDNEY: Measures 4.3 x 10.4 cm in length. Normal echogenicity. No calculus, mass, or hydronephrosis. AORTA: No aneurysmal dilatation. IVC: Unremarkable. OTHER FINDINGS: None . IMPRESSION: No significant or acute findings to account for/ related to the clinical presentation. Concordant findings (preliminary report) provided by [facility].
--- NOTE | 2018-10-14 11:34 | US ---
Date of service: 10/14/2018 PROCEDURE: First trimester ultrasound HISTORY: Abdominal pain. Beta HCG results: 145,050 units. COMPARISON: October 14, 2018. Right upper quadrant ultrasound. TECHNIQUE: Standard protocol for this study/examination. FINDINGS: LMP: 07/19/2018. Prior examinations from the current : None TECHNIQUE: Real-time 2D imaging, duplex and color Doppler. FINDINGS: Cardiac activity: Present Rate: 171 BPM Measurements: [place] rump length: 2.10 cm Gestational age based on CRL 8 weeks 2 days Gestational age 8 weeks based on gestational sac measurement 3.81 cm Gestational age derived from LMP: 12 weeks 3 days JENNIFER based on LMP: 04/25/2019 JENNIFER based on biometry: 05/20/2019 Gestational concordance not apparent. Yolk sac identified Cervix: No Cervical abnormalities: Negative examination for cervical dilatation or effacement. Closed cervix measuring 5.09 cm Subchorionic hemorrhage: None UTERUS: 6.7 x 7.3 x 12.1 cm. ADNEXA: Right: 2.1 x 2.4 x 2.8 cm. Normal Doppler arterial waveform documented. Left: 2 x 2.2 x 3.0 cm. Normal Doppler arterial waveform documented Fluid in the cul-de-sac: None IMPRESSION: 8 weeks 6 days live intrauterine gestation. Gestational discordance noted. However there is a clinical history of irregular menstrual cycles. Concordant findings (preliminary report) provided by [facility].
== END 2018-10-14 05:10 | disposition home or self-care (01) ==
LOC: H.ER 21:15
DX: O21.0 Mild hyperemesis gravidarum (principal); Z3A.08 8 weeks gestation of pregnancy
CPT/HCPCS: 76705; 76815; 80053; 84702; 85025; 96374; 99284; J2765; J7042